=== PATIENT | male | born 1970 | race Caucasian/White ===

== ENCOUNTER 2020-07-09 19:18 | Emergency (ER) | payer BC, OTHER ==
--- NOTE | 2020-07-09 20:13 | EDM.PDOC ---
ED HPI GENERAL MEDICAL PROBLEM - General Chief Complaint: Cardiovascular Problem Stated Complaint: HIGH BP Time Seen by Provider: 07/09/20 19:20 Source of Information: Reports: Patient, RN Notes Reviewed History Limitations: Reports: No Limitations - History of Present Illness INITIAL COMMENTS - FREE TEXT/NARRATIVE: Patient is a 49-year-old male presenting to the emergency department for evaluation with regards to elevated blood pressure. He states that he has a history of anxiety for which she does not currently take any anxiety medications. Few nights back, he took hydroxychloroquine and azithromycin after having a televisit with a provider on the Internet. This was prescribed to him for Covid prophylaxis and patient denies any Covid symptoms or known exposures to Covid. He took these medications as well as some zinc and then researched the possible side effects which he describes as "cardiac complications ". He states that since that time he has felt increasingly anxious. He had an episode of palpitations and racing heart shortly after taking the medications and a blood pressure in the 180s systolically. He reports that he is felt ongoing anxiety since that time. He disposed of the remainder of these medications and has not taken them since. He is currently taking Concerta which she states he has been off and on for 11 years. He recently decreased his dose from 54 mg to 36 mg as he felt this could be contributing to his anxiety. He did not take this medication today. He also reports consuming a moderate amount of caffeine throughout the day. This evening, he checked his blood pressure at home and it continued to be elevated, therefore he presents to the ER for evaluation. He denies any chest pain or shortness of breath. He states he has been on BuSpar for anxiety in the past, however he stopped it because he did not want to be on anxiety medication. He has a history of mitral valve regurgitation but has never had any complications with regards to this. He reports that he has been told in the past that he has high blood pressure and there was discussion of him starting on a blood pressure medication, however he decided against this. His primary care provider is Sally Gastelum NP. He has not had an appointment with her recently, however states that he had did call last week to have his Concerta dose decreased from 54 mg to 36 mg. Vital signs on triage show a blood pressure elevated at 160/109, pulse 108, temperature 97.8, respiratory rate 18, oxygen 97% on room air. - Related Data Allergies Allergy/AdvReac Type Severity Reaction Status Date / Time No Known Allergies Allergy Verified 07/09/20 19:25 Home Meds: Home Meds Concerta. 1 tab PO DAILY 07/09/20 [History] hydrOXYzine HCL [Atarax] 50 mg PO BEDTIME PRN #10 tab 07/09/20 [Rx] Past Medical History Cardiovascular History: Reports: Other (See Below) Other Cardiovascular History: mitral valve regurgitation and prolapse Social & Family History - Tobacco Use Tobacco Use Status *Q: Former Tobacco User Used Tobacco, but Quit: Yes Month/Year Tobacco Last Used: 10+ years ago - Caffeine Use Caffeine Use: Reports: Coffee - Recreational Drug Use Recreational Drug Use: No ED ROS GENERAL - Review of Systems Review Of Systems: See Below Constitutional: Reports: No Symptoms HEENT: Reports: No Symptoms Respiratory: Reports: No Symptoms. Denies: Shortness of Breath, Cough Cardiovascular: Reports: Blood Pressure Problem, Palpitations. Denies: Chest Pain, Dyspnea on Exertion, Edema, Lightheadedness, Syncope Endocrine: Reports: No Symptoms GI/Abdominal: Reports: No Symptoms : Reports: No Symptoms Musculoskeletal: Reports: No Symptoms Skin: Reports: No Symptoms Neurological: Reports: No Symptoms Psychiatric: Reports: Anxiety. Denies: Agitation, Depression, Hallucinations, Suicidal Ideation Hematologic/Lymphatic: Reports: No Symptoms Immunologic: Reports: No Symptoms ED EXAM, GENERAL - Physical Exam Exam: See Below Exam Limited By: No Limitations General Appearance: Alert, No Apparent Distress, Anxious Respiratory/Chest: No Respiratory Distress, Lungs Clear, Normal Breath Sounds, N o Accessory Muscle Use, Chest Non-Tender Cardiovascular: Normal Peripheral Pulses, Regular Rate, Rhythm, No Edema, No Gallop, No JVD, No Murmur, No Rub GI/Abdominal: Normal Bowel Sounds, Soft, Non-Tender, No Organomegaly, No Distention, No Abnormal Bruit, No Mass Neurological: Alert, Oriented, CN II-XII Intact, Normal Cognition, Normal Gait, Normal Reflexes, No Motor/Sensory Deficits Psychiatric: Normal Affect, Anxious Skin Exam: Warm, Dry, Intact, Normal Color, No Rash #1 Interpretation EKG Date: 07/09/20 Time: 19:41 Rhythm: NSR Rate (Beats/Min): 101 [place]: Normal P-Wave: Present QRS: Normal ST-T: Normal QT: Normal Comparison: NA - No Prior EKG Course - Vital Signs Last Recorded V/S: Last Vital Signs Temp 97.8 F 07/09/20 19:30 Pulse 108 H 07/09/20 19:30 Resp 18 07/09/20 19:30 BP 160/109 H 07/09/20 19:30 Pulse Ox 97 07/09/20 19:30 - Orders/Labs/Meds Orders: Active Orders 24 hr Category Date Time Status EKG Documentation Completion [RC] ASDIRECTED Care 07/09/20 19:32 Active EKG 12 Lead [EK] Stat Ther 07/09/20 19:32 Ordered Labs: Laboratory Tests 07/09/20 07/09/20 Range/Units 19:45 19:45 WBC 8.02 (4.23-9.07) K/mm3 RBC 5.54 (4.63-6.08) M/mm3 Hgb 16.2 (13.7-17.5) gm/dl Hct 47.7 (40.1-51.0) % MCV 86.1 (79.0-92.2) fl MCH 29.2 (25.7-32.2) pg MCHC 34.0 (32.2-35.5) g/dl RDW Std Deviation 41.0 (35.1-43.9) fL Plt Count 281 (163-337) K/mm3 MPV 9.0 L (9.4-12.3) fl Neut % (Auto) 70.2 H (34.0-67.9) % Lymph % (Auto) 22.2 (21.8-53.1) % [place] % (Auto) 7.2 (5.3-12.2) % Eos % (Auto) 0.2 L (0.8-7.0) Baso % (Auto) 0.1 (0.1-1.2) % Neut # (Auto) 5.62 H (1.78-5.38) K/mm3 Lymph # (Auto) 1.78 (1.32-3.57) K/mm3 [place] # (Auto) 0.58 (0.30-0.82) K/mm3 Eos # (Auto) 0.02 L (0.04-0.54) K/mm3 Baso # (Auto) 0.01 (0.01-0.08) K/mm3 Sodium 145 (136-145) mEq/L Potassium 3.6 (3.5-5.1) mEq/L Chloride 105 (98-107) mEq/L Carbon Dioxide 27 (21-32) mEq/L Anion Gap 16.6 H (5-15) BUN 25 H (7-18) mg/dL Creatinine 1.2 (0.7-1.3) mg/dL Est Cr Clr Drug Dosing TNP Estimated GFR (MDRD) > 60 (>60) mL/min BUN/Creatinine Ratio 20.8 H (14-18) Glucose 111 H (74-106) mg/dL Calcium 9.5 (8.5-10.1) mg/dL Total Bilirubin 0.6 (0.2-1.0) mg/dL AST 55 H (15-37) U/L ALT 79 H (16-63) U/L Alkaline Phosphatase 72 (46-116) U/L Troponin I < 0.017 (0.00-0.056) ng/mL Total Protein 8.3 H (6.4-8.2) g/dl Albumin 4.1 (3.4-5.0) g/dl Globulin 4.2 gm/dL Albumin/Globulin Ratio 1.0 (1-2) Free T4 1.01 (0.76-1.46) ng/dL TSH 3rd Generation 1.585 (0.358-3.74) uIU/mL Meds: Medications Discontinued Medications Generic Name Dose Route Start Last Admin Trade Name Freq PRN Reason Stop Dose Admin Hydroxyzine HCl 50 mg 07/09/20 20:31 Hydroxyzine Hcl 50 Mg Tab PO 07/09/20 20:32 ONETIME ONE - Re-Assessments/Exams Free Text/Narrative Re-Assessment/Exam: Patient is a 49-year-old male presenting to the emergency department with concerns of elevated blood pressure. He reports feeling increasingly anxious over the last few days and states that he has been watching his blood pressures at home and they have been anywhere from the one fifties to one eighties systolically. Blood pressure in triage was elevated at 160/109. He has had no chest pain or shortness of breath. He does appear anxious. I have ordered blood work including CBC, CMP, CRP, troponin, TSH, free T4 as well as an EKG and chest x-ray. 07/09/20 20:34 Hematology significant for anion gap minimally elevated at 16.6, BUN 25, AST 55, ALT 79. TSH and free T4 normal. EKG shows a sinus rhythm at 101 with no acute ischemia. Chest x-ray is normal. Results discussed with patient. I highly suspect that his symptoms are related to anxiety. Discussed the possibility of him coming off his Concerta as is a stimulant could be making his symptoms worse. He did not take the medication today. I will provide him with a dose of hydroxyzine this evening as well as a short prescription for him to use before bed to help with sleep. Recommend follow-up with his primary care provider tomorrow or at her next available visit. I did recommend that he check his blood pressures periodically keep a log of them to take to his visit with him. He is in agreement with this plan. Discharge instructions as documented. Departure - Departure Time of Disposition: 20:35 Disposition: Home, Self-Care 01 Condition: Good Clinical Impression: Elevated blood pressure reading, Anxiety Prescriptions: hydrOXYzine HCL [Atarax] 50 mg PO BEDTIME PRN #10 tab PRN Reason: Anxiety Instructions: Hypertension, Adult, [id number], Managing Anxiety, Adult Referrals: Sally Gastelum NP [Primary Care Provider] - Forms: ED Department Discharge Additional Instructions: You were seen in the emergency department this evening for evaluation with regards to increased anxiety and elevated blood pressures. Work-up included blood work, EKG, and chest x-ray. Results of your work were found to be normal. Your thyroid hormone is normal. Your cardiac enzyme is normal. EKG shows no acute abnormalities. Chest x-ray is normal. Your blood pressure was mildly elevated in the emergency department this evening. As we discussed, I suspect that your elevation your blood pressure is likely related to your increased anxiety, however underlying hypertension is also a possibility. You received a dose of hydroxyzine for anxiety in the emergency department this evening. A prescription for this has been sent as well. Recommend taking this at bedtime as needed. Contact your primary care provider's office tomorrow to set up a follow-up visit at her next available visit. I would recommend checking your blood pressure periodically and keep a log of the readings to take to your appointment with you. Try to reduce caffeine intake is much as possible. Recommend discussing the use of your Concerta with your primary care provider as this could be worsening your anxiety. If you experience any new or worsening symptoms of concern, please not hesitate to return to the emergency department for reevaluation. Sepsis Event Note (ED) - Evaluation Sepsis Screening Result: No Definite Risk - Focused Exam Vital Signs: Vital Signs Temp Pulse Resp BP Pulse Ox 07/09/20 19:30 97.8 F 108 H 18 160/109 H 97 - My Orders Last 24 Hours: My Active Orders 07/09/20 19:32 EKG Documentation Completion [RC] ASDIRECTED EKG 12 Lead [EK] Stat - Assessment/Plan Last 24 Hours: My Active Orders 07/09/20 19:32 EKG Documentation Completion [RC] ASDIRECTED EKG 12 Lead [EK] Stat
--- NOTE | 2020-07-09 20:26 | CR ---
Chest: 2 views of the chest were obtained. Comparison: No prior chest imaging is available. Heart size and mediastinum are within normal limits. Lungs are clear with no acute parenchymal change. Lucency is seen within the upper right first rib believed to be artifact. Mild anterior wedging is noted of a midthoracic vertebral body most likely old if patient has no acute symptoms. Impression: 1. Slight anterior wedging of a midthoracic vertebral body which is likely old if patient has no infectious symptoms. 2. Nothing acute is appreciated. Diagnostic code #2
[2020-07-09] MEDS ORDERED: hydrOXYzine HCl 50 MG Tab PO ONE (20:31)
== END 2020-07-09 20:51 | disposition home or self-care (01) ==
LOC: JD.ED 19:18
DX: R03.0 Elevated blood-pressure reading, without diagnosis of hypertension (principal); F41.9 Anxiety disorder, unspecified; Z87.891 Personal history of nicotine dependence; Z79.899 Other long term (current) drug therapy
CPT/HCPCS: 36415; 71046; 80053; 84439; 84443; 84484; 85025; 93005; 99285; A9270; 93010; 99283